=== PATIENT | male | born 1940 | race Caucasian/White ===

== ENCOUNTER 2019-04-21 01:25 | Inpatient (IN) | payer MEDICARE, MEDICAID ==
[~2019-04-21] VITALS: Ht 170.2 cm; Wt 70.0 kg
[~2019-04-21 01:25] MED LIST: ATEN-103 PO; LISI-167 PO; PANT40VI PO; POLY17PO5 PO
--- NOTE | 2019-04-21 01:40 | NUR ---
TASK RN: DEMAR PICKARD FROM [facility] W/ CO SI. PT WITH SUPERFICIAL WOUNDS TO BILAT WRIST WHERE PT REPORTS "TRYING TO CUT MYSELF WITH A RAZOR BLADE". "I JUST WANT TO SLEEP AND NEVER WAKE UP". 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 ALSO CO ACUTE ON CHRONIC R SIDED LOW BACK PAIN. DENIES HX OF PSYCH DISORDERS, SI/HI/SA. PT CALM AND COOPERATIVE. ALL BELONGINGS REMOVED FROM ROOM (BELONGINGS BAG X2, BLACK BACK PACK X1). ROOM SECURE. SITTER PRESENT. ERP AT BEDSIDE FOR INITIAL ASSESSMENT. PT AWARE OF NEED FOR UA AND AGREES TO PROVIDE WHEN ABLE. Addendum: 04/21/19 at 0152 by MARII PT REPORTS OFF ALL MEDS X THREE WEEKS
[2019-04-21] MEDS ORDERED: DIPH,PERTUSS(ACELL),TET VAC/PF 0.5 ML IM-VACC ONE ×2 (02:00→02:25)
[2019-04-21] MEDS ORDERED: LISI1TAB5 PO (02:02)
[2019-04-21] MEDS ORDERED: METO25TA35 PO (02:02)
[2019-04-21] MEDS ORDERED: TAMS-11 PO (02:02)
[2019-04-21] MEDS ORDERED: TRAM100T33 PO (02:02)
--- NOTE | 2019-04-21 02:02 | NUR ---
REPORT RECEIVED FROM RUTH PEREYRA. PT RESTING QUIETLY, ROOM SECURED, NAD.
[2019-04-21 02:17] LABS: BASOPHILS # (AUTO) 0.04 x10^3/uL (0-0.1); BASOPHILS % (AUTO) 1 % (0-1); EOSINOPHILS # (AUTO) 0.22 x10^3/uL (0-0.4); EOSINOPHILS % (AUTO) 3 % (1-7); LYMPHOCYTES # (AUTO) 1.53 x10^3/uL (1-3.4); LYMPHOCYTES % (AUTO) 22 % (22-44); MD NO; MEAN CORPUSCULAR HEMOGLOBIN 30.9 pg (27.5-34.5); MEAN CORPUSCULAR VOLUME 93.7 fL (81-97); MEAN PLATELET VOLUME 7.8 fL (7.4-10.4); MONOCYTES # (AUTO) 0.67 x10^3/uL (0.2-0.8); MONOCYTES % (AUTO) 10 % (2-9); NEUTROPHILS # (AUTO) 4.46 x10^3/uL (1.8-6.8); NEUTROPHILS % (AUTO) 64 % (42-75); PLATELET COUNT 245 x10^3/uL (130-400); RED BLOOD COUNT 3.89 x10^6/uL (4.38-5.82); RED CELL DISTRIBUTION WIDTH 13.7 % (9.4-14.8)
[2019-04-21 02:29] LABS: ALANINE AMINOTRANSFERASE 17 U/L (12-78); ALBUMIN 3.3 g/dL (3.4-5.0); ANION GAP 7 mmol/L (5-15); CALCIUM 8.1 mg/dL (8.5-10.1); CHLORIDE 107 mmol/L (98-107); CREATININE 1.15 mg/dL (0.7-1.3); SALICYLATE LEVEL 3.5 mg/dL (2.8-20.0)
--- NOTE | 2019-04-21 02:34 | NUR ---
MED GIVEN CHARTED. 5 RIGHTS VERIFIED. PT REQUESTING SOMETHING FOR GENERALIZED PAIN. NOTIFIED.
--- NOTE | 2019-04-21 02:35 | NUR ---
PT IS PLACED ON LEGAL HOLD.
[2019-04-21 02:39] LABS: ALKALINE PHOSPHATASE 59 U/L (45-117); BILIRUBIN,TOTAL 0.5 mg/dL (0.2-1.0); TOTAL PROTEIN 6.4 g/dL (6.4-8.2)
[2019-04-21] MEDS ORDERED: ACETAMINOPHEN 325 MG TABLET ONE (02:47)
[2019-04-21] MEDS ORDERED: ACETAMINOPHEN 325 MG TABLET PO ONE (03:00)
--- NOTE | 2019-04-21 03:50 | NUR ---
URINE SENT. PT RESTING QUIETLY, NAD. SITTER IN VIEW OF PT. PT TO BE ADMITTED.
[2019-04-21 04:09] LABS: AMPHETAMINE SCREEN, URINE Negative (Negative); BARBITURATE SCREEN, URINE Negative (Negative); BENZODIAZEPINE SCREEN, URINE Negative (Negative); CANNABINOID SCREEN, URINE Negative (Negative); COCAINE SCREEN, URINE Negative (Negative); METHADONE SCREEN, URINE Negative (Negative); OPIATE SCREEN, URINE Negative (Negative)
--- NOTE | 2019-04-21 04:18 | NUR ---
ASSUMING CARE OF PT AT THIS TIME. PT ASLEEP IN [facility]; KEE. SITTER OUTSIDE OF PT ROOM FOR DIRECT OBSERVATION OF PT.
[2019-04-21] MEDS ORDERED: ACETAMINOPHEN 325 MG TABLET PO PRN ×3 (04:30→10:30)
[2019-04-21] MEDS ORDERED: DOCUSATE 100 MG CAPSULE PO PRN ×2 (04:30→10:30)
[2019-04-21] MEDS ORDERED: POTASSIUM CHLORIDE 20 MEQ TAB.ER.PRT PO ONE (04:30)
[2019-04-21] MEDS ORDERED: ONDANSETRON ODT 4 MG PO PRN ×2 (04:30→10:30)
--- NOTE | 2019-04-21 05:16 | NUR ---
REPORT OF PT TO RUTH MORENO. ALL QUESTIONS ANSWERED. VSS AND UPDATED IN EMR.
[2019-04-21] MEDS ORDERED: POTASSIUM CHLORIDE 20 MEQ TAB.ER.PRT ONE (05:18)
[2019-04-21 05:41] VITALS: BP 172/103
[2019-04-21] MEDS ORDERED: ATENOLOL 25 MG TABLET PO SCH (06:00)
[2019-04-21 07:05] VITALS: BP 147/83
[2019-04-21 08:58] LABS: BASOPHILS # (AUTO) 0.04 x10^3/uL (0-0.1); BASOPHILS % (AUTO) 1 % (0-1); EOSINOPHILS # (AUTO) 0.21 x10^3/uL (0-0.4); EOSINOPHILS % (AUTO) 3 % (1-7); LYMPHOCYTES # (AUTO) 1.75 x10^3/uL (1-3.4); LYMPHOCYTES % (AUTO) 21 % (22-44); MD NO; MEAN CORPUSCULAR HEMOGLOBIN 30.2 pg (27.5-34.5); MEAN CORPUSCULAR HGB CONC 32.7 g/dL (33.2-36.2); MEAN CORPUSCULAR VOLUME 92.4 fL (81-97); MEAN PLATELET VOLUME 7.2 fL (7.4-10.4); MONOCYTES # (AUTO) 0.91 x10^3/uL (0.2-0.8); MONOCYTES % (AUTO) 11 % (2-9); NEUTROPHILS # (AUTO) 5.26 x10^3/uL (1.8-6.8); NEUTROPHILS % (AUTO) 64 % (42-75); PLATELET COUNT 238 x10^3/uL (130-400); RED BLOOD COUNT 3.86 x10^6/uL (4.38-5.82)
[2019-04-21] MEDS ORDERED: LISINOPRIL 20 MG TABLET PO SCH (09:00)
[2019-04-21] MEDS ORDERED: HYDROCHLOROTHIAZIDE 12.5 MG CAPSULE PO SCH (09:00)
[2019-04-21] MEDS ORDERED: TAMSULOSIN 0.4 MG CAP.ER.24H PO SCH (09:00)
[2019-04-21] MEDS ORDERED: BISACODYL 10 MG SUPP PR PRN (11:00)
[2019-04-21] MEDS ORDERED: POLYETHYLENE GLYCOL 17 GM PACKET PO PRN (11:00)
== END 2019-04-21 14:00 | DRG 641 ==
LOC: ED 02:58 → EDIP 04:24 → 2N 05:34
PROVIDERS: ADMIT Internal Medicine; ATTEND Internal Medicine
DX: E87.6 Hypokalemia (principal); F32.2 Major depressive disorder, single episode, severe without psychotic features; R45.851 Suicidal ideations; E44.1 Mild protein-calorie malnutrition; D64.9 Anemia, unspecified; Z68.24 Body mass index [BMI] 24.0-24.9, adult; F10.21 Alcohol dependence, in remission; G47.00 Insomnia, unspecified; I10 Essential (primary) hypertension; J44.9 Chronic obstructive pulmonary disease, unspecified; M19.90 Unspecified osteoarthritis, unspecified site; N40.0 Benign prostatic hyperplasia without lower urinary tract symptoms; S61.512A Laceration without foreign body of left wrist, initial encounter; Z87.891 Personal history of nicotine dependence; X78.1XXA Intentional self-harm by knife, initial encounter; Y93.89 Activity, other specified; Y92.89 Other specified places as the place of occurrence of the external cause; Y99.8 Other external cause status; Z79.899 Other long term (current) drug therapy
CPT/HCPCS: 36415; 80053; 80307; 84443; 85025; 90715; G0378

== ENCOUNTER 2019-04-21 09:35 | Inpatient (IN) | payer MEDICARE, MEDICAID ==
[~2019-04-21] VITALS: Ht 180.3 cm; Wt 81.7 kg
[~2019-04-21 09:35] MED LIST changes: +LISI1TAB5 PO; +METO25TA35 PO; +TAMS-11 PO; +TRAM100T33 PO
[2019-04-21] MEDS ORDERED: ONDANSETRON ODT 4 MG PO PRN ×2 (10:00→15:00)
[2019-04-21] MEDS ORDERED: ACETAMINOPHEN 325 MG TABLET PO PRN (10:00)
[2019-04-21] MEDS ORDERED: BISACODYL 10 MG SUPP PR PRN ×2 (10:00→15:00)
[2019-04-21] MEDS ORDERED: DOCUSATE 100 MG CAPSULE PO PRN ×2 (10:00→15:00)
[2019-04-21] MEDS ORDERED: POLYETHYLENE GLYCOL 17 GM PACKET PO PRN ×2 (10:00→15:00)
[2019-04-21 14:46] VITALS: BP 142/81
[2019-04-21 15:07] VITALS: BP 142/81
[2019-04-21 15:31] LABS: HCT (SEDRATE) 36.1 % (39.2-51.8)
[2019-04-21 16:12] LABS: CHOL/HDL RATIO 4.5; LDL/HDL RATIO 2.4 (0.5-3.0); T4 (THYROXINE) 6.7 mcg/dL (4.5-12.1)
[2019-04-21 19:45] VITALS: BP 106/80
[2019-04-22] MEDS: ATENOLOL 25 MG TABLET PO SCH ×2 (05:28→17:37)
[2019-04-22 07:00] VITALS: BP 115/62
[2019-04-22 17:15] VITALS: BP 153/87
[2019-04-22] MEDS: DULOXETINE 30 MG CAPSULE.DR PO SCH ×2 (17:39→20:18)
[2019-04-22 18:11] LABS: MICROSCOPIC NOT IND
[2019-04-22 18:15] LABS: CULTURE INDICATED? NO
[2019-04-22 19:38] VITALS: BP 156/79
[2019-04-22] MEDS: TRAZODONE 50MG TABLET PO SCH (20:18)
[2019-04-23 07:07] VITALS: BP 131/83
[2019-04-23] MEDS: TAMSULOSIN 0.4 MG CAP.ER.24H PO SCH (08:17)
[2019-04-23] MEDS: DULOXETINE 30 MG CAPSULE.DR PO SCH ×2 (08:17→20:24)
[2019-04-23] MEDS: ATENOLOL 25 MG TABLET PO SCH ×2 (08:17→18:24)
[2019-04-23] MEDS: ACETAMINOPHEN 325 MG TABLET PO PRN ×2 (08:35→20:24)
[2019-04-23 18:00] VITALS: BP 122/67
[2019-04-23 20:10] VITALS: BP 139/79
[2019-04-23] MEDS: TRAZODONE 50MG TABLET PO SCH (20:23)
[2019-04-24] MEDS: ACETAMINOPHEN 325 MG TABLET PO PRN ×2 (04:11→19:52)
[2019-04-24] MEDS: ATENOLOL 25 MG TABLET PO SCH ×2 (05:58→17:47)
[2019-04-24 06:59] VITALS: BP 137/73
[2019-04-24] MEDS: DULOXETINE 30 MG CAPSULE.DR PO SCH ×2 (10:11→20:30)
[2019-04-24] MEDS: TAMSULOSIN 0.4 MG CAP.ER.24H PO SCH (10:11)
[2019-04-24] MEDS: TRAZODONE 50MG TABLET PO SCH (20:30)
[2019-04-25] MEDS: ACETAMINOPHEN 325 MG TABLET PO PRN ×3 (00:20→08:13)
[2019-04-25] MEDS: ATENOLOL 25 MG TABLET PO SCH ×2 (06:02→17:10)
[2019-04-25 07:03] VITALS: BP 127/69
[2019-04-25] MEDS: TAMSULOSIN 0.4 MG CAP.ER.24H PO SCH (08:05)
[2019-04-25] MEDS: DULOXETINE 30 MG CAPSULE.DR PO SCH ×2 (08:05→08:13)
[2019-04-25 17:07] VITALS: BP 132/77
[2019-04-25 19:18] VITALS: BP 117/68
[2019-04-25] MEDS: TRAZODONE 50MG TABLET PO SCH (20:10)
[2019-04-26] MEDS: ACETAMINOPHEN 325 MG TABLET PO PRN (02:29)
[2019-04-26] MEDS: ATENOLOL 25 MG TABLET PO SCH ×2 (05:16→18:05)
[2019-04-26 07:06] VITALS: BP 125/71
[2019-04-26] MEDS: TAMSULOSIN 0.4 MG CAP.ER.24H PO SCH (08:51)
[2019-04-26 18:00] VITALS: BP 120/69
[2019-04-26 20:00] VITALS: BP 117/74
[2019-04-26] MEDS: TRAZODONE 50MG TABLET PO SCH (20:13)
[2019-04-27] MEDS: ACETAMINOPHEN 325 MG TABLET PO PRN (04:04)
[2019-04-27] MEDS: ATENOLOL 25 MG TABLET PO SCH ×2 (06:02→17:07)
[2019-04-27 07:01] VITALS: BP_SYST 130; BP_SYST 133; BP_DIAS 71; BP_DIAS 79
[2019-04-27] MEDS: TAMSULOSIN 0.4 MG CAP.ER.24H PO SCH (08:17)
[2019-04-27] MEDS: SERTRALINE 50MG TABLET PO SCH (08:17)
[2019-04-27 17:05] VITALS: BP 117/62
[2019-04-27 19:41] VITALS: BP 119/68
[2019-04-27 19:45] VITALS: BP 125/83
[2019-04-27] MEDS: TRAZODONE 50MG TABLET PO SCH (20:30)
[2019-04-28] MEDS: ATENOLOL 25 MG TABLET PO SCH ×2 (05:48→17:50)
[2019-04-28 07:39] VITALS: BP 131/75
[2019-04-28] MEDS: SERTRALINE 50MG TABLET PO SCH (08:14)
[2019-04-28] MEDS: TAMSULOSIN 0.4 MG CAP.ER.24H PO SCH (08:14)
[2019-04-28 17:27] VITALS: BP 158/72
[2019-04-28 19:33] VITALS: BP 132/73
[2019-04-28] MEDS: ACETAMINOPHEN 325 MG TABLET PO PRN (20:11)
[2019-04-28] MEDS: TRAZODONE 50MG TABLET PO SCH (20:11)
[2019-04-29 07:07] VITALS: BP 143/78
[2019-04-29] MEDS: TAMSULOSIN 0.4 MG CAP.ER.24H PO SCH (08:26)
[2019-04-29] MEDS: ACETAMINOPHEN 325 MG TABLET PO PRN (08:26)
[2019-04-29] MEDS: SERTRALINE 50MG TABLET PO SCH (08:27)
[2019-04-29] MEDS: ATENOLOL 25 MG TABLET PO SCH ×2 (08:28→18:00)
[2019-04-29 18:33] VITALS: BP 120/62
[2019-04-29 19:35] VITALS: BP 136/73
[2019-04-29] MEDS: TRAZODONE 50MG TABLET PO SCH (20:28)
[2019-04-30 05:46] VITALS: BP 136/74
[2019-04-30] MEDS: ACETAMINOPHEN 325 MG TABLET PO PRN (05:50)
[2019-04-30] MEDS: ATENOLOL 25 MG TABLET PO SCH (05:57)
[2019-04-30 07:00] VITALS: BP 136/74
[2019-04-30] MEDS: TAMSULOSIN 0.4 MG CAP.ER.24H PO SCH (08:31)
[2019-04-30] MEDS: SERTRALINE 50MG TABLET PO SCH (08:31)
[2019-04-30 08:54] LABS: ALANINE AMINOTRANSFERASE 16 U/L (12-78); ALBUMIN 3.7 g/dL (3.4-5.0); ANION GAP 4 mmol/L (5-15); CALCIUM 8.6 mg/dL (8.5-10.1); CHLORIDE 105 mmol/L (98-107); CREATININE 1.17 mg/dL (0.7-1.3)
[2019-04-30 08:56] LABS: ALKALINE PHOSPHATASE 60 U/L (45-117); BILIRUBIN,TOTAL 0.5 mg/dL (0.2-1.0); TOTAL PROTEIN 7.2 g/dL (6.4-8.2)
[2019-04-30 11:49] LABS: CHOL/HDL RATIO 4.5; LDL/HDL RATIO 2.3 (0.5-3.0)
[2019-04-30] MEDS: CYANOCOBALAMIN 1,000 MCG/ML, 1ML IM SCH (11:50)
[2019-04-30 12:17] LABS: TROPONIN I < 0.015 ng/mL (0.000-0.045)
[2019-04-30 15:19] LABS: TROPONIN I < 0.015 ng/mL (0.000-0.045)
[2019-04-30] MEDS: METOPROLOL TARTRATE 25 MG TABLET PO SCH (17:58)
[2019-04-30 19:37] VITALS: BP 125/65
[2019-04-30] MEDS: TRAZODONE 50MG TABLET PO SCH (22:54)
[2019-04-30] MEDS: ATORVASTATIN 20 MG TABLET PO SCH (22:54)
[2019-04-30] MEDS: SODIUM CHLORIDE FLUSH 10ML SYR IVF SCH (22:55)
[2019-05-01] MEDS: ASPIRIN 81 MG TABLET EC PO SCH (05:23)
[2019-05-01] MEDS: METOPROLOL TARTRATE 25 MG TABLET PO SCH ×2 (05:24→18:30)
[2019-05-01 07:18] VITALS: BP 125/70
[2019-05-01] MEDS: SODIUM CHLORIDE FLUSH 10ML SYR IVF SCH (07:48)
[2019-05-01] MEDS ORDERED: REGADENOSON 0.4 MG/5 ML SYRINGE ONE (09:36)
[2019-05-01] MEDS: SERTRALINE 50MG TABLET PO SCH (10:39)
[2019-05-01] MEDS: TAMSULOSIN 0.4 MG CAP.ER.24H PO SCH (10:39)
[2019-05-01] MEDS: CYANOCOBALAMIN 1,000 MCG/ML, 1ML IM SCH (11:39)
[2019-05-01] MEDS: ACETAMINOPHEN 325 MG TABLET PO PRN ×2 (13:59→20:58)
[2019-05-01 18:35] VITALS: BP 99/57
[2019-05-01 19:52] VITALS: BP 121/72
[2019-05-01] MEDS: TRAZODONE 50MG TABLET PO SCH (20:58)
[2019-05-01] MEDS: ATORVASTATIN 20 MG TABLET PO SCH (20:58)
[2019-05-02 05:52] VITALS: BP 135/77
[2019-05-02] MEDS: ASPIRIN 81 MG TABLET EC PO SCH (06:03)
[2019-05-02] MEDS: METOPROLOL TARTRATE 25 MG TABLET PO SCH ×2 (06:03→18:00)
[2019-05-02 07:10] VITALS: BP 137/75
[2019-05-02] MEDS: SERTRALINE 50MG TABLET PO SCH (09:35)
[2019-05-02] MEDS: TAMSULOSIN 0.4 MG CAP.ER.24H PO SCH (09:35)
[2019-05-02] MEDS: CYANOCOBALAMIN 1,000 MCG/ML, 1ML IM SCH (10:54)
[2019-05-02] MEDS: ACETAMINOPHEN 325 MG TABLET PO PRN (12:03)
[2019-05-02 17:52] VITALS: BP 127/71
[2019-05-02 19:53] VITALS: BP 132/65
[2019-05-02] MEDS: ATORVASTATIN 20 MG TABLET PO SCH (20:27)
[2019-05-02] MEDS: TRAZODONE 50MG TABLET PO SCH (20:27)
[2019-05-03] MEDS: ASPIRIN 81 MG TABLET EC PO SCH (05:24)
[2019-05-03] MEDS: METOPROLOL TARTRATE 25 MG TABLET PO SCH ×2 (05:24→17:58)
[2019-05-03 07:09] VITALS: BP 150/77
[2019-05-03] MEDS: TAMSULOSIN 0.4 MG CAP.ER.24H PO SCH (08:59)
[2019-05-03] MEDS: SERTRALINE 50MG TABLET PO SCH (08:59)
[2019-05-03] MEDS: CYANOCOBALAMIN 1,000 MCG/ML, 1ML IM SCH (09:34)
[2019-05-03] MEDS: ACETAMINOPHEN 325 MG TABLET PO PRN (13:16)
[2019-05-03 17:56] VITALS: BP 133/55
[2019-05-03 19:24] VITALS: BP 114/68
[2019-05-03] MEDS: ATORVASTATIN 20 MG TABLET PO SCH (22:59)
[2019-05-03] MEDS: TRAZODONE 50MG TABLET PO SCH (23:00)
[2019-05-04] MEDS: ASPIRIN 81 MG TABLET EC PO SCH (05:09)
[2019-05-04] MEDS: METOPROLOL TARTRATE 25 MG TABLET PO SCH ×2 (05:10→17:56)
[2019-05-04 07:20] VITALS: BP 136/73
[2019-05-04] MEDS: SERTRALINE 50MG TABLET PO SCH (08:07)
[2019-05-04] MEDS: TAMSULOSIN 0.4 MG CAP.ER.24H PO SCH (08:07)
[2019-05-04] MEDS: CYANOCOBALAMIN 1,000 MCG/ML, 1ML IM SCH (09:50)
[2019-05-04 17:57] VITALS: BP 127/73
[2019-05-04] MEDS: ACETAMINOPHEN 325 MG TABLET PO PRN (19:29)
[2019-05-04 19:43] VITALS: BP 129/76
[2019-05-04] MEDS: TRAZODONE 50MG TABLET PO SCH (22:02)
[2019-05-04] MEDS: ATORVASTATIN 20 MG TABLET PO SCH (22:02)
[2019-05-05] MEDS: ACETAMINOPHEN 325 MG TABLET PO PRN ×2 (06:40→21:47)
[2019-05-05 07:31] VITALS: BP 148/72
[2019-05-05] MEDS: METOPROLOL TARTRATE 25 MG TABLET PO SCH ×2 (08:17→20:35)
[2019-05-05] MEDS: SERTRALINE 50MG TABLET PO SCH (08:17)
[2019-05-05] MEDS: TAMSULOSIN 0.4 MG CAP.ER.24H PO SCH (08:17)
[2019-05-05] MEDS: ASPIRIN 81 MG TABLET EC PO SCH (08:17)
[2019-05-05] MEDS: CYANOCOBALAMIN 1,000 MCG/ML, 1ML IM SCH (10:06)
[2019-05-05 18:50] VITALS: BP 129/76
[2019-05-05] MEDS: TRAZODONE 50MG TABLET PO SCH (20:34)
[2019-05-05] MEDS: ATORVASTATIN 20 MG TABLET PO SCH (20:34)
[2019-05-06 07:41] VITALS: BP 131/85
[2019-05-06] MEDS: ASPIRIN 81 MG TABLET EC PO SCH (07:58)
[2019-05-06] MEDS: TAMSULOSIN 0.4 MG CAP.ER.24H PO SCH (07:59)
[2019-05-06] MEDS: SERTRALINE 50MG TABLET PO SCH (08:00)
[2019-05-06] MEDS: METOPROLOL TARTRATE 25 MG TABLET PO SCH ×2 (08:00→20:40)
[2019-05-06] MEDS: CYANOCOBALAMIN 1,000 MCG/ML, 1ML IM SCH (09:09)
[2019-05-06] MEDS: ACETAMINOPHEN 325 MG TABLET PO PRN (17:07)
[2019-05-06 19:28] VITALS: BP 130/62
[2019-05-06] MEDS: ATORVASTATIN 20 MG TABLET PO SCH (20:40)
[2019-05-06] MEDS: TRAZODONE 50MG TABLET PO SCH (20:40)
[2019-05-07] MEDS: ACETAMINOPHEN 325 MG TABLET PO PRN ×3 (04:02→19:59)
[2019-05-07 07:27] VITALS: BP 120/66
[2019-05-07] MEDS: ASPIRIN 81 MG TABLET EC PO SCH (08:50)
[2019-05-07] MEDS: METOPROLOL TARTRATE 25 MG TABLET PO SCH ×2 (08:50→20:00)
[2019-05-07] MEDS: TAMSULOSIN 0.4 MG CAP.ER.24H PO SCH (08:50)
[2019-05-07] MEDS: SERTRALINE 50MG TABLET PO SCH (08:51)
[2019-05-07 19:42] VITALS: BP 144/77
[2019-05-07] MEDS: ATORVASTATIN 20 MG TABLET PO SCH (19:59)
[2019-05-07] MEDS: TRAZODONE 50MG TABLET PO SCH (21:53)
[2019-05-08 07:04] VITALS: BP 134/72
[2019-05-08] MEDS: METOPROLOL TARTRATE 25 MG TABLET PO SCH ×2 (08:42→20:35)
[2019-05-08] MEDS: ASPIRIN 81 MG TABLET EC PO SCH (08:42)
[2019-05-08] MEDS: SERTRALINE 50MG TABLET PO SCH (08:42)
[2019-05-08] MEDS: TAMSULOSIN 0.4 MG CAP.ER.24H PO SCH (08:42)
[2019-05-08 19:28] VITALS: BP 130/71
[2019-05-08] MEDS: ATORVASTATIN 20 MG TABLET PO SCH (20:35)
[2019-05-08] MEDS: TRAZODONE 50MG TABLET PO SCH (20:35)
[2019-05-08] MEDS: ACETAMINOPHEN 325 MG TABLET PO PRN (22:59)
[2019-05-09 07:06] VITALS: BP 134/70
[2019-05-09] MEDS: ASPIRIN 81 MG TABLET EC PO SCH (08:03)
[2019-05-09] MEDS: TAMSULOSIN 0.4 MG CAP.ER.24H PO SCH (08:03)
[2019-05-09] MEDS: METOPROLOL TARTRATE 25 MG TABLET PO SCH ×2 (08:04→21:16)
[2019-05-09] MEDS: SERTRALINE 50MG TABLET PO SCH (08:04)
[2019-05-09] MEDS: ACETAMINOPHEN 325 MG TABLET PO PRN ×2 (11:55→19:33)
[2019-05-09 19:23] VITALS: BP 145/75
[2019-05-09] MEDS: TRAZODONE 50MG TABLET PO SCH (20:20)
[2019-05-09] MEDS: ATORVASTATIN 20 MG TABLET PO SCH (20:20)
[2019-05-10 07:12] VITALS: BP 144/74
[2019-05-10] MEDS: TAMSULOSIN 0.4 MG CAP.ER.24H PO SCH (08:24)
[2019-05-10] MEDS: ASPIRIN 81 MG TABLET EC PO SCH (08:24)
[2019-05-10] MEDS: METOPROLOL TARTRATE 25 MG TABLET PO SCH ×2 (08:25→20:16)
[2019-05-10] MEDS: SERTRALINE 50MG TABLET PO SCH (08:25)
[2019-05-10] MEDS: ACETAMINOPHEN 325 MG TABLET PO PRN ×2 (10:47→19:24)
[2019-05-10 19:35] VITALS: BP 140/78
[2019-05-10] MEDS: TRAZODONE 50MG TABLET PO SCH (20:15)
[2019-05-10] MEDS: ATORVASTATIN 20 MG TABLET PO SCH (20:15)
[2019-05-11 07:11] VITALS: BP 135/71
[2019-05-11] MEDS: TAMSULOSIN 0.4 MG CAP.ER.24H PO SCH (08:35)
[2019-05-11] MEDS: SERTRALINE 50MG TABLET PO SCH (08:35)
[2019-05-11] MEDS: ASPIRIN 81 MG TABLET EC PO SCH (08:36)
[2019-05-11] MEDS: METOPROLOL TARTRATE 25 MG TABLET PO SCH ×2 (08:36→20:38)
[2019-05-11] MEDS: ACETAMINOPHEN 325 MG TABLET PO PRN ×2 (16:04→20:38)
[2019-05-11 19:20] VITALS: BP 143/73
[2019-05-11] MEDS: TRAZODONE 50MG TABLET PO SCH (20:38)
[2019-05-11] MEDS: ATORVASTATIN 20 MG TABLET PO SCH (20:38)
[2019-05-12 07:15] VITALS: BP 107/62
[2019-05-12] MEDS: SERTRALINE 50MG TABLET PO SCH (08:31)
[2019-05-12] MEDS: ASPIRIN 81 MG TABLET EC PO SCH (08:32)
[2019-05-12] MEDS: TAMSULOSIN 0.4 MG CAP.ER.24H PO SCH (08:32)
[2019-05-12] MEDS: METOPROLOL TARTRATE 25 MG TABLET PO SCH ×2 (08:32→20:35)
[2019-05-12] MEDS: ACETAMINOPHEN 325 MG TABLET PO PRN ×2 (09:06→19:57)
[2019-05-12 19:34] VITALS: BP 122/70
[2019-05-12] MEDS: TRAZODONE 50MG TABLET PO SCH (20:35)
[2019-05-12] MEDS: ATORVASTATIN 20 MG TABLET PO SCH (20:35)
[2019-05-13 07:38] VITALS: BP 144/73
[2019-05-13] MEDS: ASPIRIN 81 MG TABLET EC PO SCH (08:22)
[2019-05-13] MEDS: TAMSULOSIN 0.4 MG CAP.ER.24H PO SCH (08:22)
[2019-05-13] MEDS: SERTRALINE 50MG TABLET PO SCH (08:22)
[2019-05-13] MEDS: METOPROLOL TARTRATE 25 MG TABLET PO SCH ×2 (08:22→20:12)
[2019-05-13] MEDS: ACETAMINOPHEN 325 MG TABLET PO PRN ×2 (11:20→19:55)
[2019-05-13 19:24] VITALS: BP 135/76
[2019-05-13] MEDS: ATORVASTATIN 20 MG TABLET PO SCH (20:12)
[2019-05-13] MEDS: TRAZODONE 50MG TABLET PO SCH (20:12)
[2019-05-14 07:00] VITALS: BP 132/83
[2019-05-14] MEDS: METOPROLOL TARTRATE 25 MG TABLET PO SCH ×2 (08:14→20:59)
[2019-05-14] MEDS: SERTRALINE 50MG TABLET PO SCH (08:14)
[2019-05-14] MEDS: ASPIRIN 81 MG TABLET EC PO SCH (08:14)
[2019-05-14] MEDS: ACETAMINOPHEN 325 MG TABLET PO PRN ×2 (08:14→20:59)
[2019-05-14] MEDS: TAMSULOSIN 0.4 MG CAP.ER.24H PO SCH (08:14)
[2019-05-14 19:34] VITALS: BP 135/79
[2019-05-14] MEDS: ATORVASTATIN 20 MG TABLET PO SCH (20:59)
[2019-05-14] MEDS: TRAZODONE 50MG TABLET PO SCH (20:59)
[2019-05-15] MEDS: ACETAMINOPHEN 325 MG TABLET PO PRN ×3 (03:40→20:32)
[2019-05-15 07:00] VITALS: BP 126/74
[2019-05-15] MEDS: TAMSULOSIN 0.4 MG CAP.ER.24H PO SCH (08:20)
[2019-05-15] MEDS: METOPROLOL TARTRATE 25 MG TABLET PO SCH ×2 (08:21→20:33)
[2019-05-15] MEDS: ASPIRIN 81 MG TABLET EC PO SCH (08:21)
[2019-05-15] MEDS: SERTRALINE 50MG TABLET PO SCH (08:21)
[2019-05-15 19:38] VITALS: BP 110/69
[2019-05-15] MEDS ORDERED: ATORVASTATIN 10 MG TABLET ONE (20:31)
[2019-05-15] MEDS: ATORVASTATIN 20 MG TABLET PO SCH (20:33)
[2019-05-15] MEDS: TRAZODONE 50MG TABLET PO SCH (20:33)
[2019-05-16] MEDS: ACETAMINOPHEN 325 MG TABLET PO PRN ×3 (01:47→22:13)
[2019-05-16 07:03] VITALS: BP 147/78
[2019-05-16] MEDS: ASPIRIN 81 MG TABLET EC PO SCH (08:01)
[2019-05-16] MEDS: TAMSULOSIN 0.4 MG CAP.ER.24H PO SCH (08:01)
[2019-05-16] MEDS: METOPROLOL TARTRATE 25 MG TABLET PO SCH ×2 (08:02→20:25)
[2019-05-16] MEDS: SERTRALINE 50MG TABLET PO SCH (08:02)
[2019-05-16 20:09] VITALS: BP 130/70
[2019-05-16] MEDS: TRAZODONE 50MG TABLET PO SCH (20:24)
[2019-05-16] MEDS: ATORVASTATIN 20 MG TABLET PO SCH (20:24)
[2019-05-17 07:16] VITALS: BP 145/81
[2019-05-17] MEDS: METOPROLOL TARTRATE 25 MG TABLET PO SCH ×2 (08:37→20:19)
[2019-05-17] MEDS: ASPIRIN 81 MG TABLET EC PO SCH (08:37)
[2019-05-17] MEDS: TAMSULOSIN 0.4 MG CAP.ER.24H PO SCH (08:37)
[2019-05-17] MEDS: SERTRALINE 50MG TABLET PO SCH (08:37)
[2019-05-17] MEDS ORDERED: ATOR20TA37 PO (14:27)
[2019-05-17] MEDS ORDERED: TRAZ50TA66 PO (14:27)
[2019-05-17] MEDS ORDERED: ASPI81TA45 PO (14:27)
[2019-05-17] MEDS ORDERED: TRAM50TA2 PO (14:27)
[2019-05-17] MEDS ORDERED: METO25TA35 PO (14:27)
[2019-05-17] MEDS ORDERED: SERT50TA28 PO (14:27)
[2019-05-17] MEDS ORDERED: Tamsulosin PO (14:27)
[2019-05-17] MEDS: ACETAMINOPHEN 325 MG TABLET PO PRN (15:34)
[2019-05-17 19:56] VITALS: BP 142/81
[2019-05-17] MEDS: TRAZODONE 50MG TABLET PO SCH (20:18)
[2019-05-17] MEDS: ATORVASTATIN 20 MG TABLET PO SCH (20:18)
[2019-05-18 07:03] VITALS: BP 129/74
[2019-05-18] MEDS: TAMSULOSIN 0.4 MG CAP.ER.24H PO SCH (08:00)
[2019-05-18] MEDS: ACETAMINOPHEN 325 MG TABLET PO PRN (08:00)
[2019-05-18] MEDS: SERTRALINE 50MG TABLET PO SCH (08:01)
[2019-05-18] MEDS: ASPIRIN 81 MG TABLET EC PO SCH (08:01)
[2019-05-18] MEDS: METOPROLOL TARTRATE 25 MG TABLET PO SCH (08:01)
== END 2019-05-18 09:20 | disposition home or self-care (01) | DRG 885 ==
LOC: 3E 14:28
PROVIDERS: ADMIT Psychiatry & Neurology Psychosomatic Medicine; ATTEND Psychiatry & Neurology Psychosomatic Medicine
DX: F33.2 Major depressive disorder, recurrent severe without psychotic features (principal); R45.851 Suicidal ideations; F41.9 Anxiety disorder, unspecified; R33.8 Other retention of urine; N40.1 Benign prostatic hyperplasia with lower urinary tract symptoms; M19.90 Unspecified osteoarthritis, unspecified site; J44.9 Chronic obstructive pulmonary disease, unspecified; I10 Essential (primary) hypertension; H91.10 Presbycusis, unspecified ear; G47.00 Insomnia, unspecified; F63.0 Pathological gambling; E78.5 Hyperlipidemia, unspecified; G89.29 Other chronic pain; F10.21 Alcohol dependence, in remission; E53.8 Deficiency of other specified B group vitamins; Z79.899 Other long term (current) drug therapy; Z79.82 Long term (current) use of aspirin; Z59.0 Homelessness; Z81.1 Family history of alcohol abuse and dependence; Z81.8 Family history of other mental and behavioral disorders; Z87.891 Personal history of nicotine dependence
CPT/HCPCS: 36415; 71045; 78452; 80053; 80061; 81003; 82140; 82607; 83735; 84436; 84484; 85651; 86592; 93005; 93017; J2785; 92522-GN; A9502; C9898; J3420

== ENCOUNTER 2020-08-18 10:13 | Observation (INO) | payer MEDICARE, MEDICAID ==
[~2020-08-18] VITALS: Ht 180.3 cm; Wt 69.4 kg
[~2020-08-18 10:13] MED LIST changes: +ASPI81TA45 PO; +ATOR20TA37 PO; +LISI1TAB39 PO; -LISI1TAB5 PO; +SERT50TA28 PO; +TRAM50TA2 PO; +TRAZ50TA66 PO; +Tamsulosin PO
[2020-08-18] MEDS ORDERED: MORPHINE SULFATE 4 MG/ML, 1ML ONE (10:56)
[2020-08-18] MEDS ORDERED: ONDANSETRON 2MG/ML, 2ML ONE (10:56)
--- NOTE | 2020-08-18 11:12 | NUR ---
PT CAME IN CO OF CONSTIPATION, SMALL BLACK STOOL, LLQ ABD PAIN X 1 WEEK. LABS DRAWN. PT MEDICATED PER MAR
[2020-08-18 11:16] LABS: BASOPHILS % (AUTO) 1 % (0-1); EOSINOPHILS % (AUTO) 1 % (1-7); LYMPHOCYTES % (AUTO) 18 % (22-44); MEAN CORPUSCULAR HEMOGLOBIN 31.3 pg (27.5-34.5); MEAN CORPUSCULAR HGB CONC 34.1 g/dL (33.2-36.2); MEAN PLATELET VOLUME 7.9 fL (7.4-10.4); MONOCYTES % (AUTO) 10 % (2-9); NEUTROPHILS % (AUTO) 71 % (42-75); PLATELET COUNT 267 x10^3/uL (130-400); RED BLOOD COUNT 4.16 x10^6/uL (4.38-5.82); RED CELL DISTRIBUTION WIDTH 13.2 % (9.4-14.8)
[2020-08-18 11:22] LABS: MD NO
[2020-08-18 11:25] LABS: ANION GAP 6 mmol/L (5-15); CALCIUM 9.2 mg/dL (8.5-10.1); CHLORIDE 103 mmol/L (98-107)
[2020-08-18 11:29] LABS: ALANINE AMINOTRANSFERASE 14 U/L (12-78); ALKALINE PHOSPHATASE 67 U/L (45-117); BILIRUBIN,TOTAL 1.1 mg/dL (0.2-1.0); CREATININE 1.92 mg/dL (0.7-1.3); TOTAL PROTEIN 7.8 g/dL (6.4-8.2)
[2020-08-18] MEDS ORDERED: MORPHINE SULFATE 4 MG/ML, 1ML IVPush PRN (11:30)
[2020-08-18 11:34] LABS: MICROSCOPIC INDICATED
[2020-08-18] MEDS ORDERED: ONDANSETRON 2MG/ML, 2ML IVPush ONE (12:00)
[2020-08-18] MEDS ORDERED: SODIUM CHLORIDE FLUSH 10ML SYR IVF ONE (12:00)
--- NOTE | 2020-08-18 12:01 | NUR ---
pt reports pain improvement. 05/19 to 03/19
--- NOTE | 2020-08-18 12:15 | NUR ---
PT RESTING IN [facility]. NAD. VSS
[2020-08-18] MEDS ORDERED: SODIUM CHLORIDE 0.9% 1,000ML IVBOLUS ONE (14:00)
[2020-08-18] MEDS ORDERED: ONDANSETRON 2MG/ML, 2ML IVPush PRN (14:30)
[2020-08-18] MEDS ORDERED: ACETAMINOPHEN 325 MG TABLET PO PRN (14:30)
[2020-08-18] MEDS ORDERED: ONDANSETRON ODT 4 MG PO PRN (14:30)
[2020-08-18 16:13] VITALS: BP 117/66
[2020-08-18] MEDS: POLYETHYLENE GLYCOL 17 GM PACKET PO SCH ×2 (16:42→21:43)
[2020-08-18] MEDS: ATENOLOL 25 MG TABLET PO SCH (16:42)
[2020-08-18] MEDS: METOCLOPRAMIDE 5 MG/ML, 2ML IVPush SCH ×2 (16:42→22:25)
[2020-08-18 16:58] VITALS: BP 117/66
[2020-08-18] MEDS: CLOTRIMAZOLE TROCHES 10 MG PO SCH ×2 (17:58→21:43)
[2020-08-18] MEDS: NS + 20MEQ KCL 1,000 ML IV SCH (17:58)
[2020-08-18 18:59] VITALS: BP 123/65
[2020-08-18] MEDS ORDERED: METOPROLOL TARTRATE 25 MG TAB PO SCH (21:00)
[2020-08-18] MEDS: ATORVASTATIN 20 MG TABLET PO SCH (21:43)
[2020-08-19 00:30] VITALS: BP 86/42
[2020-08-19] MEDS ORDERED: SODIUM CHLORIDE 0.9%, 500ML IVBOLUS ONE (01:00)
[2020-08-19 02:42] VITALS: BP 107/50
[2020-08-19] MEDS: NS + 20MEQ KCL 1,000 ML IV SCH ×3 (03:02→19:44)
[2020-08-19] MEDS: METOCLOPRAMIDE 5 MG/ML, 2ML IVPush SCH ×4 (04:38→22:26)
[2020-08-19 05:27] LABS: CHLORIDE 109 mmol/L (98-107)
[2020-08-19 05:36] LABS: ALANINE AMINOTRANSFERASE 10 U/L (12-78); ALBUMIN 2.9 g/dL (3.4-5.0); ALKALINE PHOSPHATASE 49 U/L (45-117); ANION GAP 5 mmol/L (5-15); BILIRUBIN,TOTAL 1.1 mg/dL (0.2-1.0); CALCIUM 8.6 mg/dL (8.5-10.1); CREATININE 1.34 mg/dL (0.7-1.3); TOTAL PROTEIN 5.7 g/dL (6.4-8.2)
[2020-08-19] MEDS: ATENOLOL 25 MG TABLET PO SCH ×2 (06:00→18:26)
[2020-08-19] MEDS: CLOTRIMAZOLE TROCHES 10 MG PO SCH ×5 (06:00→20:42)
[2020-08-19 07:43] VITALS: BP 95/53
[2020-08-19] MEDS ORDERED: CYANOCOBALAMIN 1,000 MCG/ML, 1ML IM ONE (08:30)
[2020-08-19] MEDS: POLYETHYLENE GLYCOL 17 GM PACKET PO SCH ×3 (08:48→20:42)
[2020-08-19] MEDS: ASPIRIN 81 MG TABLET EC PO SCH (08:48)
[2020-08-19] MEDS: CYANOCOBALAMIN 1,000 MCG TABLET PO SCH (08:48)
[2020-08-19] MEDS: TAMSULOSIN 0.4 MG CAP.ER.24H PO SCH (08:48)
[2020-08-19] MEDS: SERTRALINE 50MG TABLET PO SCH (08:49)
[2020-08-19 10:47] VITALS: BP_SYST 102; BP_SYST 106; BP_SYST 109; BP_DIAS 54; BP_DIAS 62
[2020-08-19] MEDS ORDERED: PINK LADY ENEMA 490 ML BOTTLE PR ONE (12:00)
[2020-08-19 14:32] VITALS: BP 118/66
[2020-08-19 19:04] VITALS: BP 124/67
[2020-08-19] MEDS: ATORVASTATIN 20 MG TABLET PO SCH (20:42)
[2020-08-20 01:00] VITALS: BP 129/71
[2020-08-20] MEDS: NS + 20MEQ KCL 1,000 ML IV SCH ×2 (03:45→11:30)
[2020-08-20] MEDS: METOCLOPRAMIDE 5 MG/ML, 2ML IVPush SCH ×2 (04:00→09:24)
[2020-08-20] MEDS: CLOTRIMAZOLE TROCHES 10 MG PO SCH ×2 (06:43→09:24)
[2020-08-20] MEDS: ATENOLOL 25 MG TABLET PO SCH (06:44)
[2020-08-20 06:50] VITALS: BP 116/57
[2020-08-20] MEDS: POLYETHYLENE GLYCOL 17 GM PACKET PO SCH (09:00)
[2020-08-20 09:14] LABS: ANION GAP 3 mmol/L (5-15); CALCIUM 8.3 mg/dL (8.5-10.1); CHLORIDE 112 mmol/L (98-107); CREATININE 1.04 mg/dL (0.7-1.3)
[2020-08-20] MEDS: CYANOCOBALAMIN 1,000 MCG TABLET PO SCH (09:24)
[2020-08-20] MEDS: TAMSULOSIN 0.4 MG CAP.ER.24H PO SCH (09:24)
[2020-08-20] MEDS: SERTRALINE 50MG TABLET PO SCH (09:24)
[2020-08-20] MEDS: ASPIRIN 81 MG TABLET EC PO SCH (09:24)
[2020-08-20] MEDS ORDERED: CYAN-27 PO (11:19)
[2020-08-20] MEDS ORDERED: DICL100G25 TP (11:19)
[2020-08-20] MEDS ORDERED: POLY17PO5 PO (11:19)
[2020-08-20] MEDS ORDERED: TRAM50TA2 PO (11:19)
[2020-08-20] MEDS ORDERED: CLOT10TR PO (11:19)
[2020-08-20] MEDS ORDERED: ONDA4TAB13 PO (11:19)
== END 2020-08-20 13:04 | disposition home or self-care (01) ==
LOC: ED 10:35 → EDIP 13:37 → INTOOBSV 13:37 → 3N 15:38 → DCLOUNGE 08-20 12:54
PROVIDERS: ADMIT Internal Medicine; ATTEND Internal Medicine
DX: R11.2 Nausea with vomiting, unspecified (principal); E86.0 Dehydration; B37.9 Candidiasis, unspecified; R07.89 Other chest pain; E53.8 Deficiency of other specified B group vitamins; R63.4 Abnormal weight loss; K59.00 Constipation, unspecified; K57.30 Diverticulosis of large intestine without perforation or abscess without bleeding; E86.1 Hypovolemia; I10 Essential (primary) hypertension; R79.89 Other specified abnormal findings of blood chemistry; M19.90 Unspecified osteoarthritis, unspecified site; N40.0 Benign prostatic hyperplasia without lower urinary tract symptoms; J44.9 Chronic obstructive pulmonary disease, unspecified; F32.9 Major depressive disorder, single episode, unspecified; N17.9 Acute kidney failure, unspecified; Z79.899 Other long term (current) drug therapy; Z87.891 Personal history of nicotine dependence
CPT/HCPCS: 36415; 74176; 80048; 80053; 81001; 82607; 83690; 84443; 85025; 87086; 96361; 96374; 96375; 96376; 99285; G0378; J2270; J2405; J2765; J3480; J7030; J7040